=== PATIENT | female | born 1985 | race American Indian/Alaskan Native ===

== ENCOUNTER 2023-08-25 17:48 | Emergency (ER) | payer OTHER, SELFPAY ==
[2023-08-25 17:53] VITALS: BP 120/72; PULSE 99; RESP 17; TEMP 36.9; O2SAT 97; BMI 35.9
--- NOTE | 2023-08-25 17:55 | ED_ITS ---
HPI - General Adult General Chief complaint: Skin/Abscess/Foreign Body Stated complaint: rash Time Seen by Provider: 08/25/23 18:05 Source: patient Mode of arrival: ambulatory Limitations: no limitations History of Present Illness HPI narrative: 37-year-old female Healthy here with complaints of itching rash to the neck since May. Patient reports she was seen at urgent care several times in completed 2 courses of antibiotics and 1 course of prednisone. She tells me that the rash did seem to improve after completing the prednisone but it did not completely resolved. She was also applying a topical steroid cream at that time as well. she reports the rash began after wearing a gold necklace. Related Data Previous Rx's Medication Instructions Recorded hydroxyzine HCl 25 mg tablet 25 mg PO Q8H PRN itching #15 tabs 08/25/23 prednisone 20 mg tablet 40 mg (2 x 20 mg) PO DAILY #14 tabs 08/25/23 triamcinolone acetonide 0.1 % 1 appl topical BID #80 grams 08/25/23 topical ointment Allergies Allergy/AdvReac Type Severity Reaction Status Date / Time No Known Allergies Allergy Verified 08/25/23 17:58 Review of Systems 2 Review of Systems: Yes all other systems are reviewed and are negative Constitutional: Constitutional: Reports no additional constitutional complaints, Denies body ache(s), Denies chills, Denies fever(s), Denies headache(s) and Denies weakness Eyes: Eyes: Reports no additional eye complaints and Denies change in vision ENT: Reports system reviewed and no additional complaints, except as documented, Denies dizziness, Denies headache(s), Denies nasal congestion, Denies nasal discharge and Denies neck pain Cardiovascular: Cardiovascular: Reports no additional cardiovascular complaints, Denies chest pain, Denies leg edema and Denies dyspnea Respiratory: Respiratory: Reports no additional respiratory complaints, Denies cough and Denies dyspnea Gastrointestinal: Gastrointestinal: Reports no additional gastrointestinal complaints, Denies abdominal pain, Denies diarrhea, Denies nausea and Denies vomiting Genitourinary: Genitourinary: Reports no additional female genitourinary complaints and Denies urinary incontinence Musculoskeletal: Musculoskeletal: Reports no additional musculoskeletal complaints, Denies back pain, Denies arthralgias, Denies joint swelling, Denies neck pain, Denies numbness and Denies tingling Integumentary/Breasts: Skin/Breast: Reports system reviewed and no additional complaints, except as docu and Reports rash Neurologic: Reports system reviewed and no additional complaints, except as documented, Denies Abnormal speech present, Denies dizziness, Denies headache(s), Denies numbness, Denies tingling and Denies weakness PMFSH Past Medical History Attestation statement: The following information was validated with the patient. Source: old records reviewed and nursing notes reviewed Social History Social History Alcohol intake: never Smoked in Last 30 Days: No Use of substances other than those prescribed or required for medical reasons: No Advance Directives: No Advance Directives Information Provided: No Physical Exam ED Vital Signs: Vital Signs - 24 hr 08/25/23 17:53 Temperature 98.4 F Pulse Rate 99 Respiratory Rate 17 Blood Pressure 120/72 Pulse Oximetry 97 Oxygen Delivery Method Room Air BMI result Body Mass Index 35.9 Const General: cooperative, healthy appearing, comfortable and no acute distress Orientation/consciousness: patient oriented x3 Limitations: no limitations HENMT Head: Yes normal to inspection Ears: hearing grossly normal bilaterally General nose exam: Normal external nose present Face and sinus: Yes normal facial exam Mouth: Normal oral and palatal mucosa present Throat: Yes posterior oropharynx normal Eyes General: appearance normal, both eyes and all related structures Pupils: Equal, round and reactive pupils present Neck Neck: Yes normal visual inspection Neck images: 2 1. area of erythema, blanchable, non slough, some areas of depigmentation, scaling Chest Chest palpation & inspection: normal inspection of the chest Resp Effort & Inspection: normal respiratory effort Auscultation: clear to auscultation bilaterally Cardio Rate: regular rate Rhythm: regular rhythm Peripheral pulses: Peripheral pulses 2+ throughout GI Inspection: Yes normal to inspection Palpation (GI): Soft to palpation and nontender Auscultation: normal bowel sounds Back/Spine/Pelvis Thoracic/Lumbar Spine: thoracic and lumbar spine normal to inspection Skin General skin exam: no rashes or lesions noted Neuro General: patient oriented x3, no focal motor deficits and normal sensation to monofilament Cranial nerves: Yes Equal, round and reactive pupils present Cognition (Neuro): normal cognition Speech: No Abnormal speech present Gait exam (Neuro): Normal gait present Motor exam (neuro): 5/5 motor strength present throughout Extrem General: Yes normal to inspection Course Course Course Narrative: RME- 37 year old female presents for evaluation of a burning and itchy rash to her neck and chest. She reports that she had the rash in May and was treated at urgent care but it returned a week ago. Medical Decision Making Medical Decision Making [facility] Narrative: 37-year-old female Healthy here with complaints of itching rash to the neck since May. Patient reports she was seen at urgent care several times in completed 2 courses of antibiotics and 1 course of prednisone. She tells me that the rash did seem to improve after completing the prednisone but it did not completely resolved. She was also applying a topical steroid cream at that time as well. she reports the rash began after wearing a gold necklace. over the anterior neck there is an area of erythema, blanchable, non slough, some areas of depigmentation, scaling this is likely an irritant dermatitis from the patient's necklace she was wearing. Patient will be placed on a prednisone course, will prescribe a topical steroid ointment and hydroxyzine p.r.n.. Recommend that patient establish a primary care doctor and obtain a dermatology referral this is been an ongoing issue for many weeks. Reviewed worrisome signs and symptoms of when to return to the emergency room. Comfortable plan for discharge home. Differential Diagnosis Differential Diagnoses: The differential diagnosis associated with the presentation includes Irritant dermatitis low concern for cellulitis, ten, SJS Prescription Management I considered prescription management with: Antibiotic see discussion and course Discharge Plan Discharge Clinical Impression: Irritant contact dermatitis Patient Disposition: Home, Self-Care Instructions: Contact Dermatitis (ED) Additional Instructions: establish a primary care doctors that you may obtain a international affairs vice president Prescriptions: New prednisone 20 mg tablet 40 mg PO DAILY Qty: 14 0RF hydroxyzine HCl 25 mg tablet 25 mg PO Q8H PRN (Reason: itching) Qty: 15 0RF triamcinolone acetonide 0.1 % ointment 1 appl topical BID Qty: 80 0RF Referrals: Physician,Unknown J [Physician] - 1 week Interventions: ED Discharge Assessment Last Done: 08/25/23 18:17 Discharge Date/Time: 08/25/23 18:20
== END 2023-08-25 18:20 | disposition home or self-care (01) ==
LOC: HO.ED 18:19
PROVIDERS: Emergency Provider Emergency Medicine
DX: L24.9 Irritant contact dermatitis, unspecified cause (principal)
CPT/HCPCS: 99283